=== PATIENT | male | born 1965 | race Caucasian/White ===

== ENCOUNTER 2020-04-14 10:58 | Emergency (ER) | payer OTHER ==
[2020-04-14] MEDS ORDERED: FAMOTIDINE 20 MG/2 ML VIAL IV STA (11:19)
[2020-04-14] MEDS ORDERED: SODIUM CHLORIDE 0.9% 500 ML 500 ML IV STA (11:19)
[2020-04-14 11:30] LABS: Basophils % (A) 0 %; Eosinophils # (A) 0.2 k/uL (0-0.7); Eosinophils % (A) 2 %; HCT 44.1 % (39.0-53.0); HGB 15.6 gm/dL (13.0-17.5); Lymphocytes # (A) 1.1 k/uL (1.0-4.8); Lymphocytes % (A) 12 %; MCH 31.1 pg (25.0-35.0); MCHC 35.2 g/dL (31.0-37.0); MCV 88.4 fL (80.0-100.0); Mean Platelet Volume 7.5; Monocytes # (A) 0.6 k/uL (0-1.0); Monocytes % (A) 7 %; Neutrophils # (A) 6.9 k/uL (1.3-7.7); Neutrophils % (A) 77 %; Platelet Count 200 k/uL (150-450); RBC 4.99 m/uL (4.30-5.90); WBC 8.9 k/uL (3.8-10.6)
[2020-04-14 11:39] LABS: Appearance,Urine Clear (Clear); Bilirubin,Urine Negative (Negative); Blood,Urine Negative (Negative); Color,Urine Yellow; Glucose,Urine (UA) Negative (Negative); Ketones,Urine 1+ (Negative); Leukocyte Esterase,Urine Negative (Negative); Nitrite,Urine Negative (Negative); PH, Urine 5.5 (5.0-8.0); Protein,Urine Trace (Negative); Specific Gravity,Urine 1.013 (1.001-1.035); Urobilinogen,Urine <2.0 mg/dL (<2.0)
[2020-04-14 11:40] LABS: Albumin 4.6 g/dL (3.5-5.0); Calcium 9.7 mg/dL (8.4-10.2); Potassium 4.3 mmol/L (3.5-5.1); Total Bilirubin 1.1 mg/dL (0.2-1.3); Total Protein 7.7 g/dL (6.3-8.2)
--- NOTE | 2020-04-14 11:54 | ED ---
Abdominal Pain HPI - General Chief Complaint: Abdominal Pain Stated Complaint: abd pain Time Seen by Provider: 04/14/20 11:09 Source: patient, RN notes reviewed Mode of arrival: ambulatory Limitations: no limitations - History of Present Illness Initial Comments: This a 54-year-old male presents emergency Department chief complaint of upper abdominal pain. Patient states has been bothersome for last 3-4 days. Patient denies any known fevers or chills no chest pain. Patient states that he has not been eating very much because his right stomach symptoms worse. Patient states he gets some very sharp intense pain with states is some constant achiness. Patient denies any melena hematochezia no dysuria no hematuria. He's had some nausea no vomiting. - Related Data Home Medications Medication Instructions Recorded Confirmed Allopurinol [Zyloprim] 100 mg PO BID 04/07/15 04/07/15 Colchicine [Colcrys] 0.6 mg PO DAILY PRN 04/07/15 04/07/15 amLODIPine [Norvasc] 5 mg PO QAM 04/07/15 04/07/15 Previous Rx's Medication Instructions Recorded Omeprazole [PriLOSEC] 20 mg PO BID #30 cap 04/14/20 Allergies Allergy/AdvReac Type Severity Reaction Status Date / Time Penicillins AdvReac Unknown Verified 04/14/20 11:08 Childhood Review of Systems ROS Statement: Those systems with pertinent positive or pertinent negative responses have been documented in the HPI. ROS Other: All systems not noted in ROS Statement are negative. Past Medical History Past Medical History: Hypertension, Sleep Apnea/CPAP/BIPAP Additional Past Medical History / Comment(s): Gout History of Any Multi-Drug Resistant Organisms: None Reported Past Surgical History: Orthopedic Surgery Additional Past Surgical History / Comment(s): Bilateral ankle surgery, Rt knee arthroscopy Past Anesthesia/Blood Transfusion Reactions: No Reported Reaction Smoking Status: Never smoker Past Alcohol Use History: Occasional Past Drug Use History: None Reported - Past Family History Father Family Medical History: Cancer Additional Family Medical History / Comment(s): Prostate cancer Mother Family Medical History: Cancer Additional Family Medical History / Comment(s): Colon cancer Sister(s) Family Medical History: Cancer Additional Family Medical History / Comment(s): Ovarian cancer General Exam Limitations: no limitations General appearance: alert, in no apparent distress Head exam: Present: atraumatic, normocephalic, normal inspection Eye exam: Present: normal appearance, PERRL, EOMI. Absent: scleral icterus, conjunctival injection, periorbital swelling ENT exam: Present: normal exam, normal oropharynx, mucous membranes moist Neck exam: Present: normal inspection, full ROM. Absent: tenderness, meningismus, lymphadenopathy Respiratory exam: Present: normal lung sounds bilaterally. Absent: respiratory distress, wheezes, rales, rhonchi, stridor Cardiovascular Exam: Present: regular rate, normal rhythm, normal heart sounds. Absent: systolic murmur, diastolic murmur, rubs, gallop, clicks GI/Abdominal exam: Present: soft, tenderness (Mild epigastric), normal bowel sounds. Absent: distended, guarding, rebound, rigid Neurological exam: Present: alert, oriented X3, CN II-XII intact Skin exam: Present: warm, dry, intact, normal color. Absent: rash Course Vital Signs 04/14/20 11:05 Temperature 98.6 F Pulse Rate 105 H Respiratory 18 Rate Blood Pressure 163/98 O2 Sat by Pulse 98 Oximetry Medical Decision Making - Medical Decision Making 54-year-old male presents emergency from for her epigastric discomfort. Patient symptoms are improving at this time. CT shows evidence of peptic ulcer disease. Patient will be started on omeprazole 20 mg twice a day. Patient will follow-up with GI. Patient instructed that he needs to have an EGD and the importance of this. We did discuss no NSAID use patient will be provided peptic ulcer disease diet. Patient understands return for any worsening or changing symptoms. - Lab Data Result diagrams: 04/14/20 11:22 04/14/20 11:22 Lab Results 04/14/20 04/14/20 04/14/20 Range/Units 11:22 11:22 11:25 WBC 8.9 (3.8-10.6) k/uL RBC 4.99 (4.30-5.90) m/uL Hgb 15.6 (13.0-17.5) gm/dL Hct 44.1 (39.0-53.0) % MCV 88.4 (80.0-100.0) fL MCH 31.1 (25.0-35.0) pg MCHC 35.2 (31.0-37.0) g/dL RDW 14.0 (11.5-15.5) % Plt Count 200 (150-450) k/uL Neutrophils % 77 % Lymphocytes % 12 % Monocytes % 7 % Eosinophils % 2 % Basophils % 0 % Neutrophils # 6.9 (1.3-7.7) k/uL Lymphocytes # 1.1 (1.0-4.8) k/uL Monocytes # 0.6 (0-1.0) k/uL Eosinophils # 0.2 (0-0.7) k/uL Basophils # 0.0 (0-0.2) k/uL Sodium 138 (137-145) mmol/L Potassium 4.3 (3.5-5.1) mmol/L Chloride 105 (98-107) mmol/L Carbon Dioxide 16 L (22-30) mmol/L Anion Gap 17 mmol/L BUN 27 H (9-20) mg/dL Creatinine 2.17 H (0.66-1.25) mg/dL Est GFR (CKD-EPI)AfAm 38 (>60 ml/min/1.73 sqM) Est GFR (CKD-EPI)NonAf 33 (>60 ml/min/1.73 sqM) Glucose 119 H (74-99) mg/dL Calcium 9.7 (8.4-10.2) mg/dL Total Bilirubin 1.1 (0.2-1.3) mg/dL AST 32 (17-59) U/L ALT 32 (4-49) U/L Alkaline Phosphatase 103 (38-126) U/L Total Protein 7.7 (6.3-8.2) g/dL Albumin 4.6 (3.5-5.0) g/dL Amylase 100 (30-110) U/L Lipase 323 H (23-300) U/L Urine Color Yellow Urine Appearance Clear (Clear) Urine pH 5.5 (5.0-8.0) Ur Specific Gepp 1.013 (1.001-1.035) Urine Protein Trace H (Negative) Urine Glucose (UA) Negative (Negative) Urine Ketones 1+ H (Negative) Urine Blood Negative (Negative) Urine Nitrite Negative (Negative) Urine Bilirubin Negative (Negative) Urine Urobilinogen <2.0 (<2.0) mg/dL Ur Leukocyte Esterase Negative (Negative) Disposition Clinical Impression: Peptic ulcer disease, Gastritis, Duodenitis Disposition: HOME SELF-CARE Condition: Stable Instructions (If sedation given, give patient instructions): Diet for Stomach Ulcers and Gastritis (ED), Peptic Ulcer (ED), Gastritis (ED) Additional Instructions: Please return to the Emergency Department if symptoms worsen or any other concerns. Prescriptions: Omeprazole [PriLOSEC] 20 mg PO BID #30 cap Is patient prescribed a controlled substance at d/c from ED?: No Referrals: Yojana Kumar MD [Primary Care Provider] - 1-2 days Time of Disposition: 13:08
--- NOTE | 2020-04-14 12:01 | CT ---
EXAMINATION TYPE: CT abdomen pelvis wo con DATE OF EXAM: 04/14/2020 COMPARISON: None HISTORY: epigastric pain CT DLP: 935.3 mGycm Automated exposure control for dose reduction was used. TECHNIQUE: Helical acquisition of images was performed from the lung bases through the pelvis. FINDINGS: LUNG BASES: Lingular atelectasis. LIVER/GB: Hepatic parenchyma is diffusely hypoattenuated in comparison to that of the spleen, most co mmonly seen in hepatic steatosis. This finding limits evaluation for hepatic masses. No gross evidenc e of hepatic mass is seen. No intrahepatic biliary ductal dilatation. No cholelithiasis. PANCREAS: Inflammatory fat stranding between the pancreatic head/uncinate process and adjacent stomac h and duodenum. SPLEEN: No significant abnormality is seen. ADRENALS: No significant abnormality is seen. KIDNEYS: Punctate nonobstructing right lower pole renal calculi measure 1 to 2 mm. No hydronephrosis of either kidney. FREE AIR: No free air is visualized ADENOPATHY: Multiple prominent but nonenlarged gastrohepatic and peripancreatic lymph nodes. A few n onenlarged shotty periaortic lymph nodes. REPRODUCTIVE ORGANS: Heterogenous prostate gland with central zone calcifications. URINARY BLADDER: Urinary bladder wall thickening is seen circumferentially but pronounced anteriorly . Near bladder is suboptimally distended. OSSEOUS STRUCTURES: Old fracture of the inferior facet of L4 on the right. Mild multilevel degenerat manas change of the spine. BOWEL: Numerous sigmoid diverticula are seen without pericolonic fat stranding. Appendix is air-fill ed and within normal limits. OTHER: Abdominal aorta is of normal course and caliber. IMPRESSION: 1. Acute gastritis and duodenitis. Endoscopy recommended to evaluate for peptic ulcer disease. No pne umoperitoneum. Alternative consideration for groove pancreatitis should be given given the inflammato ry process between the gastric antrum and pancreatic head. Correlate with serum amylase and lipase. M ultiple surrounding prominent lymph nodes are not pathologically enlarged at this time and likely jacobo ctive. 2. Urinary bladder wall thickening most pronounced anteriorly. Correlate with urinalysis.
[2020-04-14] MEDS ORDERED: MAG HYDROX/AL HYDROX/SIMETH 30 ML, HYOSCYAMINE ELIXIR 10 ML PO STA ×2 (12:54)
[2020-04-14 13:41] VITALS: BP 155/79; PULSE 91; RESP 20; TEMP 98.3
== END 2020-04-14 13:15 | disposition home or self-care (01) ==
LOC: EC 10:58
DX: K29.80 Duodenitis without bleeding (principal); K29.70 Gastritis, unspecified, without bleeding; K27.9 Peptic ulcer, site unspecified, unspecified as acute or chronic, without hemorrhage or perforation; I10 Essential (primary) hypertension; G47.30 Sleep apnea, unspecified; Z79.899 Other long term (current) drug therapy; Z88.0 Allergy status to penicillin; Z99.89 Dependence on other enabling machines and devices
CPT/HCPCS: 36415; 74176; 80053; 81003; 82150; 83690; 85025; 96361; 96374; 99284

== ENCOUNTER 2020-04-16 11:34 | Inpatient (IN) | payer OTHER ==
--- NOTE | 2020-04-16 12:11 | ED ---
Back Pain HPI - General Chief Complaint: Back Pain/Injury Stated Complaint: Lower back pain Time Seen by Provider: 04/16/20 11:51 Source: patient Limitations: no limitations - History of Present Illness Initial Comments: Patient is a 54-year-old male presenting to the emergency department with a chief complaint of back pain. Patient reports he was in the emergency department 2 days ago diagnosed with a peptic ulcer. Patient reports he was started on omeprazole and is gradually seeing improvements in his abdominal symptoms. States yesterday she developed right lower back pain without any radiation. States the pain is sharp in nature and is worse with with movement. Denies doing any physical work over the last 2-3 days. Denies any trauma to the region. Denies any saddle anesthesia, urinary or bowel incontinence. Denies hematuria, hematochezia or melena. Denies any testicular pain or swelling, penile discharge. Denies any chest pain or shortness of breath. States he went to 's office who advised him to come to the emergency department for evaluation. - Related Data Home Medications Medication Instructions Recorded Confirmed Allopurinol [Zyloprim] 100 mg PO BID 04/07/15 04/07/15 Colchicine [Colcrys] 0.6 mg PO DAILY PRN 04/07/15 04/07/15 amLODIPine [Norvasc] 5 mg PO QAM 04/07/15 04/07/15 Previous Rx's Medication Instructions Recorded Omeprazole [PriLOSEC] 20 mg PO BID #30 cap 04/14/20 Allergies Allergy/AdvReac Type Severity Reaction Status Date / Time Penicillins AdvReac Unknown Verified 04/16/20 11:41 Childhood Review of Systems ROS Statement: Those systems with pertinent positive or pertinent negative responses have been documented in the HPI. ROS Other: All systems not noted in ROS Statement are negative. Past Medical History Past Medical History: Hypertension, Sleep Apnea/CPAP/BIPAP Additional Past Medical History / Comment(s): Gout History of Any Multi-Drug Resistant Organisms: None Reported Past Surgical History: Orthopedic Surgery Additional Past Surgical History / Comment(s): Bilateral ankle surgery, Rt knee arthroscopy Past Anesthesia/Blood Transfusion Reactions: No Reported Reaction Smoking Status: Never smoker Past Alcohol Use History: Occasional Past Drug Use History: None Reported - Past Family History Father Family Medical History: Cancer Additional Family Medical History / Comment(s): Prostate cancer Mother Family Medical History: Cancer Additional Family Medical History / Comment(s): Colon cancer Sister(s) Family Medical History: Cancer Additional Family Medical History / Comment(s): Ovarian cancer General Exam Limitations: no limitations General appearance: alert, in no apparent distress Head exam: Present: atraumatic, normocephalic, normal inspection Eye exam: Present: normal appearance, PERRL, EOMI Pupils: Present: normal accommodation ENT exam: Present: normal exam, normal oropharynx, mucous membranes moist Neck exam: Present: normal inspection, full ROM Respiratory exam: Present: normal lung sounds bilaterally. Absent: respiratory distress, wheezes, rales Cardiovascular Exam: Present: regular rate, normal rhythm, normal heart sounds GI/Abdominal exam: Present: soft, tenderness (Mild epigastric tenderness). Absent: distended Extremities exam: Present: normal inspection, full ROM Back exam: Present: normal inspection, full ROM, tenderness, paraspinal tenderness (Paraspinal lumbar tenderness.). Absent: other ( Negative leg raise test bilaterally.) Neurological exam: Present: alert, oriented X3 Psychiatric exam: Present: normal affect, normal mood Skin exam: Present: warm, dry, intact, normal color Course Vital Signs 04/16/20 04/16/20 11:38 14:34 Temperature 98.5 F Pulse Rate 119 H 102 H Respiratory 20 18 Rate Blood Pressure 143/64 162/92 O2 Sat by Pulse 99 99 Oximetry Medical Decision Making - Medical Decision Making Patient is a 54-year-old male presenting to the emergency department with chief complaint of low back pain. On exam patient has right paraspinal tenderness in lumbar region. This appears to be exacerbated with movement. would like the patient to be admitted. Contacted the ED and spoke with . Patient was given analgesia in the ED. CBC is unremarkable. CMP shows elevated BUN and creatinine suggesting possible acute kidney injury. Patient was given 2 L of bolus fluids and started on a saline drip. Lipase elevated at 500. Patient made nothing by mouth and will be admitted for further medical management. Admitting physician is . GI on consult - Lab Data Result diagrams: 04/16/20 12:35 04/16/20 12:35 Lab Results 04/16/20 04/16/20 04/16/20 Range/Units 12:35 12:35 13:58 WBC 11.8 H (3.8-10.6) k/uL RBC 4.76 (4.30-5.90) m/uL Hgb 14.9 (13.0-17.5) gm/dL Hct 42.2 (39.0-53.0) % MCV 88.6 (80.0-100.0) fL MCH 31.3 (25.0-35.0) pg MCHC 35.3 (31.0-37.0) g/dL RDW 13.9 (11.5-15.5) % Plt Count 204 (150-450) k/uL Neutrophils % 85 % Lymphocytes % 6 % Monocytes % 7 % Eosinophils % 1 % Basophils % 0 % Neutrophils # 10.0 H (1.3-7.7) k/uL Lymphocytes # 0.7 L (1.0-4.8) k/uL Monocytes # 0.8 (0-1.0) k/uL Eosinophils # 0.1 (0-0.7) k/uL Basophils # 0.0 (0-0.2) k/uL Sodium 137 (137-145) mmol/L Potassium 4.4 (3.5-5.1) mmol/L Chloride 105 (98-107) mmol/L Carbon Dioxide 18 L (22-30) mmol/L Anion Gap 14 mmol/L BUN 35 H (9-20) mg/dL Creatinine 2.42 H (0.66-1.25) mg/dL Est GFR (CKD-EPI)AfAm 34 (>60 ml/min/1.73 sqM) Est GFR (CKD-EPI)NonAf 29 (>60 ml/min/1.73 sqM) Glucose 118 H (74-99) mg/dL Calcium 9.7 (8.4-10.2) mg/dL Total Bilirubin 0.9 (0.2-1.3) mg/dL AST 31 (17-59) U/L ALT 43 (4-49) U/L Alkaline Phosphatase 101 (38-126) U/L Total Protein 7.7 (6.3-8.2) g/dL Albumin 4.6 (3.5-5.0) g/dL Amylase 114 H (30-110) U/L Lipase 480 H (23-300) U/L Urine Color Yellow Urine Appearance Clear (Clear) Urine pH 5.5 (5.0-8.0) Ur Specific Gabbs 1.011 (1.001-1.035) Urine Protein Trace H (Negative) Urine Glucose (UA) Negative (Negative) Urine Ketones Negative (Negative) Urine Blood Negative (Negative) Urine Nitrite Negative (Negative) Urine Bilirubin Negative (Negative) Urine Urobilinogen <2.0 (<2.0) mg/dL Ur Leukocyte Esterase Negative (Negative) - EKG Data EKG Comments: Sinus tachycardia. ST change noted in V1. ventricular rate 160, MD 124, QRS 80, QTC 414. Disposition Clinical Impression: Lumbar pain, Abdominal pain Disposition: ADMITTED IP TO THIS HOSP Condition: Stable Instructions (If sedation given, give patient instructions): Acute Low Back Pain (ED) Additional Instructions: Patient will be admitted Is patient prescribed a controlled substance at d/c from ED?: No Referrals: Yojana Kumar MD [Primary Care Provider] - 1-2 days Time of Disposition: 17:17
[2020-04-16] MEDS ORDERED: SODIUM CHLORIDE 0.9% 1,000 ML IV STA ×2 (12:15→14:34)
[2020-04-16] MEDS ORDERED: MORPHINE SULFATE 4 MG/ML SYRINGE IV STA (12:15)
[2020-04-16] MEDS ORDERED: ALPRAZolam 0.25 MG TAB PO PRN (12:26)
[2020-04-16] MEDS ORDERED: NALOXONE 0.4 MG/ML 1 ML VIAL IV PRN (12:26)
[2020-04-16] MEDS ORDERED: ACETAMINOPHEN TAB 325 MG TAB PO PRN (12:26)
[2020-04-16 13:01] LABS: Basophils % (A) 0 %; Eosinophils # (A) 0.1 k/uL (0-0.7); Eosinophils % (A) 1 %; HCT 42.2 % (39.0-53.0); HGB 14.9 gm/dL (13.0-17.5); Lymphocytes # (A) 0.7 k/uL (1.0-4.8); Lymphocytes % (A) 6 %; MCH 31.3 pg (25.0-35.0); MCHC 35.3 g/dL (31.0-37.0); MCV 88.6 fL (80.0-100.0); Mean Platelet Volume 7.9; Monocytes # (A) 0.8 k/uL (0-1.0); Monocytes % (A) 7 %; Neutrophils % (A) 85 %; Platelet Count 204 k/uL (150-450); RBC 4.76 m/uL (4.30-5.90); RDW 13.9 % (11.5-15.5); WBC 11.8 k/uL (3.8-10.6)
[2020-04-16 13:10] LABS: Albumin 4.6 g/dL (3.5-5.0); Calcium 9.7 mg/dL (8.4-10.2); Potassium 4.4 mmol/L (3.5-5.1); Total Bilirubin 0.9 mg/dL (0.2-1.3); Total Protein 7.7 g/dL (6.3-8.2)
[2020-04-16] MEDS: HYDROmorphone 0.5 MG/0.5 ML SYRINGE IVP PRN ×3 (13:19→21:56)
[2020-04-16] MEDS: SODIUM CHLORIDE 0.9% 1,000 ML IV SCH ×2 (13:21→21:56)
[2020-04-16 14:18] LABS: Appearance,Urine Clear (Clear); Bilirubin,Urine Negative (Negative); Blood,Urine Negative (Negative); Color,Urine Yellow; Glucose,Urine (UA) Negative (Negative); Ketones,Urine Negative (Negative); Leukocyte Esterase,Urine Negative (Negative); Nitrite,Urine Negative (Negative); PH, Urine 5.5 (5.0-8.0); Protein,Urine Trace (Negative); Specific Gravity,Urine 1.011 (1.001-1.035); Urobilinogen,Urine <2.0 mg/dL (<2.0)
[2020-04-16] MEDS: PANTOPRAZOLE 40 MG/10 ML VIAL IVP SCH (21:56)
[2020-04-17] MEDS: HYDROmorphone 0.5 MG/0.5 ML SYRINGE IVP PRN ×3 (02:51→13:07)
[2020-04-17] MEDS: SODIUM CHLORIDE 0.9% 1,000 ML IV SCH ×3 (02:56→22:24)
[2020-04-17] MEDS: MORPHINE ORAL SOLN 10 MG/5 ML CUP PO PRN ×2 (06:48→11:52)
[2020-04-17] MEDS: PANTOPRAZOLE 40 MG/10 ML VIAL IVP SCH ×2 (09:16→20:58)
[2020-04-17] MEDS: COLCHICINE 0.6 MG EACH PO SCH ×2 (13:07→20:58)
[2020-04-17] MEDS: methylPREDNISolone SOD SUCCI 40 MG/ML 1 ML VIAL IV SCH ×2 (13:07→20:58)
--- NOTE | 2020-04-17 13:44 | P.HPIM ---
History of Present Illness H&P Date: 04/17/20 Chief Complaint: back pain This is a 54-year-old male patient of Dr. Kumar with the past medical history of GERD, hypertension, obstructive sleep apnea, gout. Patient started having low back pain yesterday that was nonradiating. It was sharp and worse with any movement. He denies any trauma or overuse. He has had no urinary or bladder incontinence. No hematuria, hematochezia or melena. Patient is also complaining of pain in his knees. Patient has been instructed to come into [facility] emergency center for evaluation. He was found to be afebrile, heart rate 119, blood pressure 143/64 pulse ox 99%. presenting to the emergency department with a chief complaint of back pain. Patient reports he was in the emergency department 2 days ago diagnosed with a peptic ulcer. Patient reports he was started on omeprazole and is gradually seeing improvements in his abdominal symptoms. States yesterday she developed right lower back pain without any radiation. States the pain is sharp in nature and is worse with with movement. Denies doing any physical work over the last 2-3 days. Denies any trauma to the region. Denies any saddle anesthesia, urinary or bowel incontinence. Denies hematuria, hematochezia or melena. Denies any testicular pain or swelling, penile discharge. Denies any chest pain or shortness of breath. States he went to 's office who advised him to come to the emergency department for evaluation. WBC 11.8, CO2 18, BUN 35 creatinine 2.42, blood sugar 118. Urinalysis was clear with no sign of infection. Amylase 114, lipase 480. EKG was a sinus tachycardia. Patient was given 2 L of IV fluids and admitted to the observation unit with plan for discharge home tomorrow. Review of Systems Constitutional: Denies chills, Denies fatigue, Denies fever, Denies lethargy, Denies malaise, Denies poor appetite, Denies weakness, Denies weight loss Eyes: denies blurred vision, denies pain Ears, nose, mouth and throat: Denies dysphagia, Denies headache, Denies mouth pain, Denies nasal congestion, Denies nasal discharge, Denies sore throat, Denies vertigo Cardiovascular: Denies chest pain, Denies decreased exercise tolerance, Denies dyspnea on exertion, Denies edema, Denies leg edema, Denies lightheadedness, Denies shortness of breath, Denies syncope Respiratory: Denies cough, Denies cough with sputum, Denies dyspnea, Denies excessive sputum, Denies hemoptysis, Denies home oxygen, Denies wheezing Gastrointestinal: Denies abdominal pain, Denies diarrhea, Denies loss of appetite, Denies melena, Denies nausea, Denies vomiting Genitourinary: Denies dysuria, Denies urinary frequency, Denies urinary retention Musculoskeletal: Reports low back pain, Denies frequent falls, Denies gait dysfunction, Denies muscle weakness, Denies myalgias Musculoskeletal: bilateral: knee pain, knee stiffness, knee swelling Integumentary: Denies pruritus, Denies rash, Denies unusual bruising Neurological: Denies change in mentation, Denies confusion, Denies numbness, Denies seizures, Denies weakness Psychiatric: Denies anxiety, Denies depression Endocrine: Denies fatigue, Denies weight change Past Medical History Past Medical History: GERD/Reflux, Hypertension, Sleep Apnea/CPAP/BIPAP Additional Past Medical History / Comment(s): Gout History of Any Multi-Drug Resistant Organisms: None Reported Past Surgical History: Orthopedic Surgery Additional Past Surgical History / Comment(s): Bilateral ankle surgery, Rt knee arthroscopy Past Anesthesia/Blood Transfusion Reactions: No Reported Reaction Past Psychological History: No Psychological Hx Reported Smoking Status: Never smoker Past Alcohol Use History: Occasional Additional Past Alcohol Use History / Comment(s): Patient is a lifelong nonsmoker, no marijuana, illicit drug use. Social alcohol use only. Past Drug Use History: None Reported - Past Family History Father Family Medical History: Cancer Additional Family Medical History / Comment(s): Father is alive at age 84 with history of prostate cancer. Mother Family Medical History: Cancer Additional Family Medical History / Comment(s): Mother is alive with history of gallbladder issues and colon cancer. Sister(s) Family Medical History: Cancer Additional Family Medical History / Comment(s): Patient had 1 sister that is passed from ovarian cancer. Brother(s) Additional Family Medical History / Comment(s): Patient has 1 brother with no major medical problems. Patient does not have any children. Medications and Allergies Home Medications Medication Instructions Recorded Confirmed Type Omeprazole [PriLOSEC] 20 mg PO BID #30 cap 04/14/20 04/16/20 Rx Allergies Allergy/AdvReac Type Severity Reaction Status Date / Time Penicillins AdvReac Unknown Verified 04/16/20 19:52 Childhood Physical Exam Vitals: Vital Signs Temp Pulse Pulse Resp BP BP Pulse Ox 04/17/20 11:13 98.2 F 124 H 19 186/110 98 04/17/20 09:31 98.4 F 119 H 18 174/91 100 04/17/20 09:23 119 H 18 174/91 100 04/17/20 06:43 98.4 F 117 H 18 151/98 98 04/17/20 02:57 99.1 F 103 H 18 150/70 97 04/17/20 00:19 112 H 18 170/104 94 L 04/16/20 23:08 101.3 F H 120 H 15 165/94 95 04/16/20 21:00 15 L 100 H 171/100 98 04/16/20 14:34 102 H 18 162/92 99 Intake and Output 04/16/20 04/17/20 04/17/20 22:59 06:59 14:59 Intake Total 1000 Output Total 700 1000 Balance -700 0 Intake: Intake, IV Titration 1000 Amount Sodium Chloride 0.9% 1, 1000 000 ml @ 75 mls/hr IV . [id number] [facility] Rx#:[id number] Output: Urine 700 1000 Other: # Voids 1 Weight 95.254 kg Gen: This is a 54-year-old male. Patient is resting in bed and appears to be comfortable and in no acute distress. HEENT: Head is atraumatic, normocephalic. Pupils equal, round. Sclerae is anicteric. NECK: Supple. No JVD. No lymphadenopathy. No thyromegaly. LUNGS: Clear to auscultation. No wheezes or rhonchi. No intercostal retractions. HEART: Regular rate and rhythm. No murmur. ABDOMEN: Soft. Bowel sounds are present. No masses. Mild epigastric tenderness. LUMBAR: Tenderness in the lumbar area. Negative straight leg raise test. EXTREMITIES: No pedal edema. No calf tenderness. NEUROLOGICAL: Patient is awake, alert and oriented x3. Cranial nerves 2 through 12 are grossly intact. Results CBC & Chem 7: 04/16/20 12:35 04/16/20 12:35 Labs: Abnormal Lab Results - Last 24 Hours (Table) 04/16/20 Range/Units 13:58 Urine Protein Trace H (Negative) Thrombosis Risk Factor Assmnt - DVT/VTE Prophylaxis DVT/VTE Prophylaxis: Pharmacologic Prophylaxis ordered - Choose All That Apply Any of the Below Risk Factors Present?: Yes Each Factor Represents 1 point: Age 41-60 years Other Risk Factors: No Thrombosis Risk Factor Assessment Total Risk Factor Score: 1 Thrombosis Risk Factor Assessment Level: Low Risk Assessment and Plan Plan: 1. Acute kidney injury with chronic kidney disease stage III with baseline creatinine 1.8. Continue IV fluids at 100 mL per hour, recheck BMP in the morning 2. Acute gout exacerbation to back and knees. Patient started on colchicine 0.6 mg twice daily, Solu-Medrol 40 mg every 12 hours, ice to the areas. 3. Gastroesophageal reflux disease and GI prophylaxis. Protonix 40 mg twice daily. 4. Obstructive sleep apnea, stable. 5. Hypertension, stable. 6. DVT prophylaxis. Heparin subcu. 7. COVID-19 infection not present. Patient observation status. Discharge plan: Home on Tuesday Impression and plan of care have been directed as dictated by the signing physician. Merle Lopez nurse practitioner acting as scribe for signing physician.
[2020-04-17] MEDS ORDERED: METOPROLOL TARTRATE 25 MG TAB PO STA (15:15)
--- NOTE | 2020-04-17 19:48 | CONS ---
CONSULTATION DATE OF DICTATION: 04/17/2020 REASON FOR CONSULTATION: Epigastric pain, mildly elevated lipase. Rule out peptic ulcer disease. HISTORY OF PRESENT ILLNESS: The patient is a 54-year-old pleasant white male who came into the emergency room with severe low back pain yesterday. About 2 days prior to that, he came into the emergency room because of severe epigastric pain for 3-4 days' duration. He was seen in the ER. He had a CT of the abdomen and pelvis done that showed evidence of gastritis and duodenitis. He was given Prilosec 20 mg daily and was discharged home. The patient has been taking the medication since then and has been feeling much better; in fact, abdominal pain has completely resolved. Yesterday when he came into the emergency room with severe low back pain he did have labs done that showed elevated lipase at 480 with amylase of 114, and hence we are consulted in regard to this issue. The patient never had any history of pancreatitis. No history of alcohol use. He had routine labs done which revealed normal hemoglobin at 14.9, WBC 11.8, and platelets were normal. BUN and creatinine were slightly elevated at 35 and 2.42. Through the course of the evening he developed severe gouty arthritis involving the left knee and presently is receiving colchicine and steroids. He developed a low-grade fever last night. This morning he is feeling better. PAST MEDICAL HISTORY: His past medical history is significant for gastroesophageal reflux disease, history of gouty arthritis 10 years ago. MEDICATIONS: Medications prior to admission: omeprazole. SOCIAL HISTORY: No smoking. No alcohol use. FAMILY HISTORY: Father had prostate cancer. Mother had colon cancer. PAST SURGICAL HISTORY: Colonoscopy approximately 5 years ago, history of bilateral ankle surgery and right knee arthroscopy. REVIEW OF SYSTEMS: CARDIOPULMONARY: No chest pain or shortness of breath. GENITOURINARY: No dysuria or hematuria. MUSCULOSKELETAL: Severe left knee pain. NEUROLOGY: Unremarkable. PSYCHIATRY: Unremarkable. ENT/VISION: Unremarkable. CONSTITUTIONAL: No recent weight loss. No fever, chills, night sweats. PHYSICAL EXAMINATION: Patient appears comfortable. No apparent distress. VITAL SIGNS: Stable. Blood pressure is 190/100, temperature 98, and pulse rate 123. HEENT examination unremarkable. Conjunctivae pink. Sclerae anicteric. Oral cavity no lesions. NECK: No JVD or lymph node enlargement. CHEST: Clear to auscultation. HEART: Regular rate and rhythm. ABDOMEN: Soft. It was non-tender, non-distended. Bowel sounds are positive. No organomegaly. EXTREMITIES: No pedal edema. SKIN: No rashes. NEUROLOGIC: Alert and oriented x3. No focal deficits. LABS: WBC 11.8, hemoglobin 14.9, platelets normal. Basic metabolic panel showed a BUN of 35, creatinine 2.42. Amylase was 114 and lipase was 480. IMPRESSION: 1. Epigastric pain for the past 3-4 days' duration. The patient came to the emergency room 2 days ago and had a CT of the abdomen and pelvis done that showed mild gastritis and duodenitis. He was given Prilosec 20 mg daily and since then his symptoms have completely resolved. Currently he does not have any upper GI symptoms. No prior history of peptic ulcer disease. He denies any recent NSAID use. Currently on Protonix 40 mg IV and doing much better. 2. Mild elevation of amylase and lipase, which appears to be nonspecific. Doubt pancreatitis, as recent CT scan done 2 days ago did not show any inflammation of the pancreas. Nonspecific elevation of amylase and lipase can be seen with upper GI pathology. 3. Severe gouty arthritis involving the left knee. Patient at present on steroids and colchicine and doing much better. 4. Low back pain. RECOMMENDATIONS: 1. Continue with Protonix 40 mg daily. 2. Advance diet as tolerated. 3. Continue medications for gouty arthritis with colchicine and Solu-Medrol. 4. No plans on any endoscopic intervention at the present time, as his upper GI symptoms have completely resolved. 5. Patient advised to follow up in the office in 2-3 weeks following discharge from the hospital, and based on his symptoms, we will consider an upper endoscopy on an outpatient basis if deemed necessary. Thank you for this consultation. MMODL / IJN: [id number] /
[2020-04-17] MEDS: HEPARIN SODIUM,PORCINE 5,000 UNIT/ML 1 ML VIAL SQ SCH (20:58)
[2020-04-17] MEDS: METOPROLOL TARTRATE 25 MG TAB PO SCH (20:59)
[2020-04-18 01:01] VITALS: RESP 18
[2020-04-18 06:46] LABS: Calcium 9.1 mg/dL (8.4-10.2); Potassium 4.5 mmol/L (3.5-5.1)
[2020-04-18] MEDS: PANTOPRAZOLE 40 MG/10 ML VIAL IVP SCH ×2 (09:04→21:53)
[2020-04-18] MEDS: HEPARIN SODIUM,PORCINE 5,000 UNIT/ML 1 ML VIAL SQ SCH ×2 (09:04→21:53)
[2020-04-18] MEDS: COLCHICINE 0.6 MG EACH PO SCH ×2 (09:04→21:52)
[2020-04-18] MEDS: METOPROLOL TARTRATE 25 MG TAB PO SCH ×2 (09:04→21:52)
[2020-04-18] MEDS: SODIUM CHLORIDE 0.9% 1,000 ML IV SCH ×2 (09:05→18:51)
[2020-04-18] MEDS: methylPREDNISolone SOD SUCCI 40 MG/ML 1 ML VIAL IV SCH ×2 (09:05→21:53)
--- NOTE | 2020-04-18 11:46 | P.PN ---
Subjective Progress Note Date: 04/18/20 This is a 54-year-old male patient of Dr. Kumar with the past medical history of GERD, hypertension, obstructive sleep apnea, gout. Patient started having low back pain yesterday that was nonradiating. It was sharp and worse with any movement. He denies any trauma or overuse. He has had no urinary or bladder incontinence. No hematuria, hematochezia or melena. Patient is also complaining of pain in his knees. Patient has been instructed to come into [facility] emergency center for evaluation. He was found to be afebrile, heart rate 119, blood pressure 143/64 pulse ox 99%. presenting to the emergency department with a chief complaint of back pain. Patient reports he was in the emergency department 2 days ago diagnosed with a peptic ulcer. Patient reports he was started on omeprazole and is gradually seeing improvements in his abdominal symptoms. States yesterday she developed right lower back pain without any radiation. States the pain is sharp in nature and is worse with with movement. Denies doing any physical work over the last 2-3 days. Denies any trauma to the region. Denies any saddle anesthesia, urinary or bowel incontinence. Denies hematuria, hematochezia or melena. Denies any testicular pain or swelling, penile discharge. Denies any chest pain or shortness of breath. States he went to 's office who advised him to come to the emergency department for evaluation. WBC 11.8, CO2 18, BUN 35 creatinine 2.42, blood sugar 118. Urinalysis was clear with no sign of infection. Amylase 114, lipase 480. EKG was a sinus tachycardia. Patient was given 2 L of IV fluids and admitted to the observation unit with plan for discharge home tomorrow. 04/18: Patient had fever of 101.3 at 11 PM, heart rate 108, blood pressure 142/84, pulse ox 98% on room air. Order in for patient to have blood culture obtained if he has recorded fever. Repeat lab work reveals chloride 108, CO2 18, BUN 27 and creatinine 2.05, blood sugar 133. Patient continues to have knee and back pain better improved from yesterday. He related that he had a dark stool but nursing did not see it. Stool for occult blood will be ordered. Patient denies any abdominal pain. He was seen by Dr. Chinchilla yesterday with recommendations to continue Protonix, advance diet as tolerated. No plan for endoscopy and plan to follow-up in the office in 2-3 weeks after discharge and endoscopy will be considered at that time. Objective - Vital Signs Vital signs: Vital Signs Temp 98.2 F 04/18/20 08:00 Pulse 108 H 04/18/20 08:00 Resp 18 04/18/20 08:00 BP 163/98 04/18/20 08:00 Pulse Ox 98 04/18/20 08:00 Intake & Output 04/17/20 04/18/20 04/18/20 18:59 06:59 18:59 Intake Total 800 1040 600 Output Total 1000 800 Balance -200 240 600 Weight 95.254 kg Intake: Intake, IV Titration 800 800 Amount Sodium Chloride 0.9% 1, 800 800 000 ml @ 100 mls/hr IV . Q10H MAR Rx#:[id number] Oral 0 240 600 Output: Urine 1000 800 Other: # Voids 1 - Exam Review of Systems Constitutional: Denies chills, Denies fatigue, reports fever, Denies lethargy, Denies malaise, Denies poor appetite, Denies weakness, Denies weight loss Eyes: denies blurred vision, denies pain Ears, nose, mouth and throat: Denies dysphagia, Denies headache, Denies mouth pain, Denies nasal congestion, Denies nasal discharge, Denies sore throat, Denies vertigo Cardiovascular: Denies chest pain, Denies decreased exercise tolerance, Denies dyspnea on exertion, Denies edema, Denies leg edema, Denies lightheadedness, Denies shortness of breath, Denies syncope Respiratory: Denies cough, Denies cough with sputum, Denies dyspnea, Denies excessive sputum, Denies hemoptysis, Denies home oxygen, Denies wheezing Gastrointestinal: Denies abdominal pain, Denies diarrhea, Denies loss of appetite, Denies melena, Denies nausea, Denies vomiting Genitourinary: Denies dysuria, Denies urinary frequency, Denies urinary retention Musculoskeletal: Reports low back pain, Denies frequent falls, Denies gait dysfu nction, Denies muscle weakness, Denies myalgias Musculoskeletal: bilateral: knee pain, knee stiffness, knee swelling Integumentary: Denies pruritus, Denies rash, Denies unusual bruising Neurological: Denies change in mentation, Denies confusion, Denies numbness, Denies seizures, Denies weakness Psychiatric: Denies anxiety, Denies depression Endocrine: Denies fatigue, Denies weight change Physical examination Gen: This is a 54-year-old male. Patient is resting in bed and appears to be comfortable and in no acute distress. HEENT: Head is atraumatic, normocephalic. Pupils equal, round. Sclerae is anicteric. NECK: Supple. No JVD. No lymphadenopathy. No thyromegaly. LUNGS: Clear to auscultation. No wheezes or rhonchi. No intercostal retractions. HEART: Regular rate and rhythm. No murmur. ABDOMEN: Soft. Bowel sounds are present. No masses. Mild epigastric tenderness. LUMBAR: Tenderness in the lumbar area. Negative straight leg raise test. EXTREMITIES: No pedal edema. No calf tenderness. NEUROLOGICAL: Patient is awake, alert and oriented x3. Cranial nerves 2 through 12 are grossly intact. - Labs CBC & Chem 7: 04/16/20 12:35 04/18/20 05:32 Labs: Abnormal Lab Results - Last 24 Hours (Table) 04/18/20 Range/Units 05:32 Chloride 108 H (98-107) mmol/L Carbon Dioxide 18 L (22-30) mmol/L BUN 27 H (9-20) mg/dL Creatinine 2.05 H (0.66-1.25) mg/dL Glucose 133 H (74-99) mg/dL Assessment and Plan Plan: 1. Acute kidney injury with chronic kidney disease stage III with baseline creatinine 1.8. Continue IV fluids at 100 mL per hour, recheck BMP in the morning 2. Acute gout exacerbation to back and knees. Patient started on colchicine 0.6 mg twice daily, Solu-Medrol 40 mg every 12 hours, ice to the areas. 3. Abdominal pain possibly related to gastroesophageal reflux disease. Protonix 40 mg twice daily. Consult with GI appreciated. No plan for endoscopy at this time. Follow-up in the office. Stool for occult blood to be checked. 4. Obstructive sleep apnea, stable. 5. Hypertension, uncontrolled. Lopressor 25 mg twice daily. 6. DVT prophylaxis. Heparin subcu. 7. COVID-19 infection not present. 8. SIRS criteria of fever and tachycardia, unclear etiology. Blood culture to be obtained patient has a recorded fever. Patient admitted to the hospital for a minimum of 2 night stay. Discharge plan: Home Impression and plan of care have been directed as dictated by the signing physician. Merle Lopez nurse practitioner acting as scribe for signing physician.
[2020-04-19] MEDS: SODIUM CHLORIDE 0.9% 1,000 ML IV SCH (03:30)
[2020-04-19] MEDS: methylPREDNISolone SOD SUCCI 40 MG/ML 1 ML VIAL IV SCH (09:40)
[2020-04-19] MEDS: HEPARIN SODIUM,PORCINE 5,000 UNIT/ML 1 ML VIAL SQ SCH (09:40)
[2020-04-19] MEDS: METOPROLOL TARTRATE 25 MG TAB PO SCH (09:41)
[2020-04-19] MEDS: PANTOPRAZOLE 40 MG/10 ML VIAL IVP SCH (09:42)
[2020-04-19] MEDS: COLCHICINE 0.6 MG EACH PO SCH (09:42)
--- NOTE | 2020-04-19 11:09 | P.DS ---
Providers Date of admission: 04/18/20 12:11 Expected date of discharge: 04/19/20 Attending physician: Yojana Kumar Primary care physician: Yojana Kumar [facility] Course: This is a 54-year-old male patient of Dr. Kumar with the past medical history of GERD, hypertension, obstructive sleep apnea, gout. Patient started having low back pain yesterday that was nonradiating. It was sharp and worse with any movement. He denies any trauma or overuse. He has had no urinary or bladder incontinence. No hematuria, hematochezia or melena. Patient is also complaining of pain in his knees. Patient has been instructed to come into [facility] emergency center for evaluation. He was found to be afebrile, heart rate 119, blood pressure 143/64 pulse ox 99%. presenting to the emergency department with a chief complaint of back pain. Patient reports he was in the emergency department 2 days ago diagnosed with a peptic ulcer. Patient reports he was started on omeprazole and is gradually seeing improvements in his abdominal symptoms. States yesterday she developed right lower back pain without any radiation. States the pain is sharp in nature and is worse with with movement. Denies doing any physical work over the last 2-3 days. Denies any trauma to the region. Denies any saddle anesthesia, urinary or bowel incontinence. Denies hematuria, hematochezia or melena. Denies any testicular pain or swelling, penile discharge. Denies any chest pain or shortness of breath. States he went to 's office who advised him to come to the emergency department for evaluation. WBC 11.8, CO2 18, BUN 35 creatinine 2.42, blood sugar 118. Urinalysis was clear with no sign of infection. Amylase 114, lipase 480. EKG was a sinus tachycardia. Patient was given 2 L of IV fluids and admitted to the observation unit with plan for discharge home tomorrow. 04/18: Patient had fever of 101.3 at 11 PM, heart rate 108, blood pressure 142/84, pulse ox 98% on room air. Order in for patient to have blood culture obtained if he has recorded fever. Repeat lab work reveals chloride 108, CO2 18, BUN 27 and creatinine 2.05, blood sugar 133. Patient continues to have knee and back pain better improved from yesterday. He related that he had a dark stool but nursing did not see it. Stool for occult blood will be ordered. Patient denies any abdominal pain. He was seen by Dr. Chinchilla yesterday with recommendations to continue Protonix, advance diet as tolerated. No plan for endoscopy and plan to follow-up in the office in 2-3 weeks after discharge and endoscopy will be considered at that time. Discharge Diagnoses: 1. Acute kidney injury with chronic kidney disease stage III with baseline creatinine 1.8. 2. Acute gout exacerbation to back and knees. 3. Abdominal pain possibly related to gastroesophageal reflux disease. Protonix 40 mg twice daily. 4. Obstructive sleep apnea, stable. 5. Hypertension, uncontrolled. 6. Mild Pancreatitis. 7. SIRS. Patient Condition at Discharge: Stable Plan - Discharge Summary Discharge Rx Participant: No New Discharge Prescriptions: No Action Omeprazole [PriLOSEC] 20 mg PO BID #30 cap Discharge Medication List Omeprazole [PriLOSEC] 20 mg PO BID #30 cap 04/14/20 [Rx] Follow up Appointment(s)/Referral(s): Yojana Kumar MD [Primary Care Provider] - 1-2 days Eliane Arteaga MD [STAFF PHYSICIAN] - 6 Weeks Patient Instructions/Handouts: Acute Low Back Pain (ED) Activity/Diet/Wound Care/Special Instructions: Patient will be admitted
[2020-04-19 11:22] VITALS: BP 158/93; PULSE 85; TEMP 97.8
[2020-04-20] MEDS ORDERED: PANTOPRAZOLE 40 MG TABLET PO SCH (07:30)
== END 2020-04-19 12:50 | disposition home or self-care (01) | DRG 682 ==
LOC: EC 11:34 → 4SSUR 17:24 → 1SOBS 04-17 08:36 → OBSVTOIN 04-18 12:11
PROVIDERS: ADMIT Internal Medicine; ATTEND Internal Medicine
DX: N17.9 Acute kidney failure, unspecified (principal); K85.90 Acute pancreatitis without necrosis or infection, unspecified; R65.10 Systemic inflammatory response syndrome (SIRS) of non-infectious origin without acute organ dysfunction; K21.9 Gastro-esophageal reflux disease without esophagitis; G47.33 Obstructive sleep apnea (adult) (pediatric); I12.9 Hypertensive chronic kidney disease with stage 1 through stage 4 chronic kidney disease, or unspecified chronic kidney disease; K29.70 Gastritis, unspecified, without bleeding; K29.80 Duodenitis without bleeding; M10.9 Gout, unspecified; N18.3 Chronic kidney disease, stage 3 (moderate); Z20.828 Contact with and (suspected) exposure to other viral communicable diseases; Z79.899 Other long term (current) drug therapy; Z88.0 Allergy status to penicillin; Z80.0 Family history of malignant neoplasm of digestive organs; Z80.42 Family history of malignant neoplasm of prostate
CPT/HCPCS: 36415; 80048; 80053; 81003; 82150; 83690; 85025; 87045; 87046; 96361; 96374; 96375; 96376; 99284

== ENCOUNTER → 2020-10-03 | Outpatient (CLI) | payer OTHER ==
--- NOTE | 2020-10-03 08:36 | US ---
EXAMINATION TYPE: US kidneys/renal and bladder DATE OF EXAM: 10/03/2020 COMPARISON: 01/20/[address] 04/14/2020 CLINICAL HISTORY: 55-year-old male R94.4 Abnormal results of kidney function studies. TECHNIQUE: Multiple sonographic images of the kidneys and bladder are obtained. FINDINGS: EXAM MEASUREMENTS: Right Kidney: 11.3 x 5.3 x 5.9 cm Left Kidney: 10.2 x 4.5 x 5.5 cm Kidneys: No hydronephrosis on either side. Bilateral renal cortical thinning. Bladder: wnl, a couple small mural based echogenicities posteriorly measuring up to 7 mm show twinkle artifact. Bilateral Jets seen: Faintly seen bilaterally. IMPRESSION: 1. A couple tiny dependent echoes in the bladder may be technical artifact. Tiny bladder calculi catie uring up to 7 mm are difficult to exclude. Consider 3 month follow-up to reassess. 2. No hydronephrosis on either side. 3. Changes of chronic medical renal disease.
== END | disposition home or self-care (01) ==
LOC: RADUSWWP 07:33
PROVIDERS: ATTEND Internal Medicine
DX: N21.0 Calculus in bladder (principal); N18.9 Chronic kidney disease, unspecified; R93.41 Abnormal radiologic findings on diagnostic imaging of renal pelvis, ureter, or bladder
CPT/HCPCS: 76770

== ENCOUNTER 2022-07-20 10:14 | Day surgery (SDC) | payer OTHER ==
[2022-07-16 11:55] VITALS: BMI 30.2
[~2022-07-20 10:14] MED LIST: LACTATED RINGERS 1,000 ML IV SCH
[2022-07-20 10:34] VITALS: TEMP 97.5
[2022-07-20] MEDS ORDERED: PROPOFOL 10 MG/ML 20 ML VIAL IV ONE (11:10)
--- NOTE | 2022-07-20 11:19 | P.GSHP ---
History of Present Illness H&P Date: 07/20/22 Chief Complaint: Colon cancer screening 86-year-old male here today for colonoscopy. Last colonoscopy 7 years ago. He had ascending colon hyperplastic polyps at that time. Family history of colon cancer in his mother. No bowel complaints. Past Medical History Past Medical History: GERD/Reflux, Hypertension, Sleep Apnea/CPAP/BIPAP Additional Past Medical History / Comment(s): Gout History of Any Multi-Drug Resistant Organisms: None Reported Past Surgical History: Orthopedic Surgery Additional Past Surgical History / Comment(s): Bilateral ankle surgery, Rt knee arthroscopy Past Anesthesia/Blood Transfusion Reactions: No Reported Reaction Past Psychological History: No Psychological Hx Reported Smoking Status: Never smoker Past Alcohol Use History: None Reported Past Drug Use History: None Reported - Past Family History Brother(s) Additional Family Medical History / Comment(s): Patient has 1 brother with no major medical problems. Patient does not have any children. Father Family Medical History: Cancer Additional Family Medical History / Comment(s): Father is alive at age 84 with history of prostate cancer. Mother Family Medical History: Cancer Additional Family Medical History / Comment(s): Mother is alive with history of gallbladder issues and colon cancer. Sister(s) Family Medical History: Cancer Additional Family Medical History / Comment(s): Patient had 1 sister that is passed from ovarian cancer. Medications and Allergies Home Medications Medication Instructions Recorded Confirmed Type Pantoprazole [Protonix] 40 mg PO AC-BRKFST #30 tablet. 04/19/20 07/20/22 Rx Cholecalciferol [Vitamin D3 (25 25 mcg PO DAILY 07/16/22 07/20/22 History Mcg = 1000 Iu)] Febuxostat [Uloric] 80 mg PO DAILY 07/16/22 07/20/22 History Metoprolol Tartrate [Lopressor] 25 mg PO DAILY 07/16/22 07/20/22 History amLODIPine [Norvasc] 10 mg PO DAILY 07/16/22 07/20/22 History Allergies Allergy/AdvReac Type Severity Reaction Status Date / Time Penicillins AdvReac Unknown Verified 07/20/22 10:30 Childhood Surgical - Exam Vital Signs Temp Pulse Resp BP Pulse Ox 97.5 F L 92 18 125/92 98 07/20/22 10:30 07/20/22 10:30 07/20/22 10:30 07/20/22 10:30 07/20/22 10:30 Physical exam: General: Well-developed, well-nourished HEENT: Normocephalic, sclerae nonicteric Abdomen: Nontender, nondistended Extremities: No edema Neuro: Alert and oriented Assessment and Plan (1) Colon cancer screening Narrative/Plan: Will proceed with colonoscopy at this time. Current Visit: No Status: Acute Code(s): Z12.11 - ENCOUNTER FOR SCREENING FOR MALIGNANT NEOPLASM OF COLON SNOMED Code(s): 659886667
--- NOTE | 2022-07-20 11:29 | P.PCN ---
Date of Procedure: 07/20/22 Procedure(s) Performed: PREOPERATIVE DIAGNOSIS: Colon cancer screening, family history of colon cancer POSTOPERATIVE DIAGNOSIS: Normal exam PROCEDURE: Colonoscopy ANESTHESIA: MAC SURGEON: Rufus Martins M.D. SPECIMENS: None ENDOSCOPIC PROCEDURE: The patient was placed on the endoscopy table in the left decubitus position. The Olympus colonoscope was inserted into the anus and passed under direct visualization to the base of the cecum. The appendiceal orifice was visualized. From that point the scope was slowly withdrawn inspecting all surfaces carefully. There were no neoplastic inflammatory or polypoid lesions throughout the cecum, ascending, transverse, descending, sigmoid and rectum. There was no visible diverticulosis noted. Digital rectal examination was normal. The patient was taken to the recovery room in stable condition per anesthesia guidelines. RECOMMENDATIONS: Resume diet. Repeat colonoscopy 5 years because of the patient's family history of colon cancer.
[2022-07-20 11:36] VITALS: RESP 16
[2022-07-20 11:48] VITALS: BP 130/84; PULSE 89
== END 2022-07-20 12:20 | disposition home or self-care (01) ==
LOC: ORWHC2ENDO 10:14
PROVIDERS: ATTEND Surgery
DX: Z12.11 Encounter for screening for malignant neoplasm of colon (principal); Z86.010 Personal history of colon polyps; K21.9 Gastro-esophageal reflux disease without esophagitis; I10 Essential (primary) hypertension; G47.30 Sleep apnea, unspecified; M10.9 Gout, unspecified; Z87.828 Personal history of other (healed) physical injury and trauma; Z98.890 Other specified postprocedural states; Z80.0 Family history of malignant neoplasm of digestive organs; Z79.899 Other long term (current) drug therapy; Z88.0 Allergy status to penicillin; Z80.42 Family history of malignant neoplasm of prostate
CPT/HCPCS: 45378; J2704

== ENCOUNTER → 2022-12-13 | Outpatient (CLI) | payer OTHER ==
--- NOTE | 2022-12-13 12:00 | US ---
EXAMINATION TYPE: US kidneys/renal and bladder DATE OF EXAM: 12/13/2022 COMPARISON: US 2019 CLINICAL HISTORY: N18.4 CKD STAGE 4. CKD stage 4 EXAM MEASUREMENTS: Right Kidney: 10.8 x 5.3 x 4.4 cm Left Kidney: 10.2 x 4.7 x 4.5 cm Post Void Residual Volume: 8.9 mL Right Kidney: wnl Left Kidney: wnl Bladder: wnl Bilateral Jets seen: Only right jet visualized Normal Post Void Residual: Yes Incidental finding two echogenic lesions within spleen 1)= 1.2 x 1.2 cm 2)= 0.7 x 0.5 cm There is no evidence for hydronephrosis at this point in time. No nephrolithiasis is seen. No kelli s are identified. The urinary bladder is adequately distended. Bilateral ureteral jets are not seen . Minimal residual urine after voiding. Technologist montes two small hyperechoic lesions in the infer ior spleen presumed benign based on size. IMPRESSION: No hydronephrosis seen bilaterally. No significant change from prior.
== END | disposition home or self-care (01) ==
LOC: RADUSWWP 10:49
PROVIDERS: ATTEND Internal Medicine Nephrology
DX: N18.4 Chronic kidney disease, stage 4 (severe) (principal)
CPT/HCPCS: 76770

== ENCOUNTER → 2023-07-19 | Outpatient (CLI) | payer OTHER ==
[2023-07-19 16:00] LABS: Appearance,Urine Clear (Clear); Bilirubin,Urine Negative (Negative); Blood,Urine Negative (Negative); Color,Urine Yellow (Yellow); Ketones,Urine Negative (Negative); Nitrite,Urine Negative (Negative); Specific Gravity,Urine 1.013 (1.001-1.030); Urobilinogen,Urine 0.2 E.U./DL
[2023-07-19 16:06] LABS: % Iron Saturation 29.14 (15.00-50.00); Albumin 4.5 d/dL (3.8-4.9); BUN/Creat Ratio 15.05 Ratio (12.00-20.00); Basophils # (A) 0.03 X 10*3/uL (0.00-0.10); Basophils % (A) 0.6 %; Blood Urea Nitrogen 31.6 mg/dL (9.0-27.0); Calcium 9.8 mg/dL (8.7-10.3); Carbon Dioxide 24.6 mmol/L (21.6-31.8); Chloride 106 mmol/L (96-109); Eosinophils # (A) 0.13 X 10*3/uL (0.04-0.35); Eosinophils % (A) 2.4 %; Glucose 123 mg/dL (70-110); HGB 16.3 d/dL (13.0-17.0); Iron 88 UG/DL (65-175); Lymphocytes # (A) 1.37 X 10*3/uL (0.90-5.00); Lymphocytes % (A) 25.3 %; MCH 31.2 pg (27.0-32.0); MCHC 34.7 d/dL (32.0-37.0); Magnesium 2.1 mg/dL (1.5-2.4); Mean Platelet Volume 11.5 FL (9.5-12.2); Monocytes # (A) 0.67 X 10*3/uL (0.20-1.00); Monocytes % (A) 12.4 %; NRBC Per 100 WBC 0 X 10*3/uL (0.00-0.01); Neutrophils # (A) 3.18 X 10*3/uL (1.80-7.70); Neutrophils % (A) 58.7 %; Phosphorus 2.5 mg/dL (2.4-5.1); Platelet Count 123 X 10*3/uL (140-440); Potassium 4.7 mmol/L (3.5-5.5); RBC 5.22 X 10*6/uL (4.40-5.60); RDW 14.4 % (11.5-14.5); Sodium 141 mmol/L (135-145); Total Iron Binding Capacity 302 UG/DL (228-460); Uric Acid 3.8 mg/dL (3.7-8.7); WBC 5.41 X 10*3/uL (4.50-10.00)
[2023-07-19 21:49] LABS: Microalbumin Creatinine Ratio <15 mg/g Cr (0-30); Urine Creatinine 81.4 mg/dL (39.0-259.0)
== END | disposition home or self-care (01) ==
LOC: LABWHC1 08:33
PROVIDERS: ATTEND Internal Medicine Nephrology
DX: E55.9 Vitamin D deficiency, unspecified (principal); N25.81 Secondary hyperparathyroidism of renal origin; N18.4 Chronic kidney disease, stage 4 (severe); M10.9 Gout, unspecified; N39.0 Urinary tract infection, site not specified; D63.1 Anemia in chronic kidney disease; R80.9 Proteinuria, unspecified
CPT/HCPCS: 36415; 80048; 81003; 82040; 82043; 82306; 82570; 82728; 83540; 83550; 83735; 83970; 84100; 84550; 85025

== ENCOUNTER → 2025-02-14 | Outpatient (CLI) | payer OTHER ==
--- NOTE | 2025-02-14 15:06 | US ---
EXAMINATION TYPE: US kidneys/renal and bladder DATE OF EXAM: 02/14/2025 COMPARISON: Multiple, most recent 11/23/2022 CLINICAL INDICATION: Male, 59 years old with history of N18.32 CHRONIC KIDNEY DISEASE, STAGE 3B; Roybn ent denies any signs, symptoms, or relevant history TECHNIQUE: Grayscale imaging of the bilateral kidneys and urinary bladder: FINDINGS: EXAM MEASUREMENTS: Right Kidney: 11.0 x 5.6 x 3.6 cm Left Kidney: 12.6 x 6.0 x 5.2 cm Post Void Residual Volume: NA mL Right Kidney: wnl, no evidence for hydronephrosis, mass or renal calculus. Left Kidney: wnl, no evidence for hydronephrosis, mass or renal calculus. Bladder: ? Lesions on dependant portion of bladder Bilateral Jets seen: No Normal Post Void Residual: NA There is no evidence for hydronephrosis at this point in time. No nephrolithiasis is seen. No kelli s are identified. Corticomedullary differentiation is maintained bilaterally. There is a 0.8 cm nonva scular lesion within the mid urinary bladder on the left. No distinct shadowing at L5. IMPRESSION: 1. No hydronephrosis or nephrolithiasis. 2. Nonspecific nonvascular subcentimeter lesion within the urinary bladder which may represent a nons hadowing calculus versus other etiologies. Consider direct visualization versus CT. [facility], , 02/14/2025 3:04 PM
== END | disposition home or self-care (01) ==
LOC: RADUSWWP 14:20
PROVIDERS: ATTEND Internal Medicine
DX: N32.89 Other specified disorders of bladder (principal); N18.32 Chronic kidney disease, stage 3b
CPT/HCPCS: 76770

== ENCOUNTER → 2025-02-25 | Outpatient (CLI) | payer OTHER ==
--- NOTE | 2025-02-25 11:13 | XR ---
EXAMINATION TYPE: XR lumbar spine 2 or 3V DATE OF EXAM: 02/25/2025 10:47 AM COMPARISON: None. CLINICAL INDICATION: Male, 59 years old with history of M47.26 OTHER SPONDYLOSIS WITH RADICULOPATHY, LUMBA, pain TECHNIQUE: 3 view(s) obtained. FINDINGS: There are 5 lumbar-type vertebral bodies. Pedicles are intact. Disc heights are preserved. Vertebral body heights are preserved. Mild spondylosis is present. MRI can be performed as clinically indicated . IMPRESSION: 1. No acute osseous abnormality lumbar spine. [facility], , 02/25/2025 11:11 AM
== END | disposition home or self-care (01) ==
LOC: RADXRMAIN 10:34
PROVIDERS: ATTEND Internal Medicine
DX: M47.26 Other spondylosis with radiculopathy, lumbar region (principal)
CPT/HCPCS: 72100